=== PATIENT | male | born 1935 | race African-American/Black ===

== ENCOUNTER 2016-06-14 09:59 | Emergency (ER) | payer OTHER, BC ==
[~2016-06-14] VITALS: Ht 182.9 cm; Wt 90.7 kg
[~2016-06-14 09:59] MED LIST: AMLODIPINE; BABY ASPIRIN; DILTIAZEM; LIP20 PO; TELM20TA PO
[2016-06-14 10:23] VITALS: BP_SYST 152
--- NOTE | 2016-06-14 10:28 | NUR ---
Patient to ER bed 6 to gown for evaluation. Side rails up. Report given to ELIZABETH WATTERS.
--- NOTE | 2016-06-14 10:30 | NUR ---
Patient AAOx4, no acute distress noted. Patient states he had "tendon surgery on left shoulder on " and c/o 09/24 pain in left elbow to left wrist. Denies any back or neck pain. Left shoulder and arm with immobilizer and "cooler" system. Radial pulses present bilaterally. No obvious deformities or swelling noted. No other complaints/injuries per patient or noted.
--- NOTE | 2016-06-14 10:32 | NUR ---
ER at bedside examining patient.
[2016-06-14 11:20] LABS: ANION GAP 8 (5-15); CALCIUM 9.1 mg/dL (8.4-11.0); CHLORIDE 100 mmol/L (98-107); CREATININE 1.08 mg/dL (0.55-1.30); GLUCOSE 133 mg/dL (70-99); POTASSIUM 3.2 mmol/L (3.5-5.1); SODIUM SERUM 133 mmol/L (136-145); UREA NITROGEN, BLOOD 12 mg/dL (8-21)
[2016-06-14 11:22] LABS: BASOPHILS # (AUTO) 0.1 K/uL (0.0-0.2); BASOPHILS % (AUTO) 0.9 % (0.0-2.0); EOSINOPHILS # (AUTO) 0.1 K/uL (0.0-0.4); HEMATOCRIT 46.4 % (36-54); HEMOGLOBIN 15.6 g/dL (14.0-18.0); INR 1.1 (0.80-1.20); LYMPHOCYTES # (AUTO) 1.5 K/uL (1.0-5.5); LYMPHOCYTES % (AUTO) 12.3 % (20.5-51.5); MEAN CORPUSCULAR HEMOGLOBIN 30 pg (27-31); MEAN CORPUSCULAR HGB CONC 34 % (32-36); MEAN CORPUSCULAR VOLUME 89 fL (79.0-98.0); MONOCYTES # (AUTO) 1.2 K/uL (0.0-1.0); MONOCYTES % (AUTO) 9.8 % (1.7-9.3); NEUTROPHILS # (AUTO) 9.4 K/uL (1.8-7.7); PLATELET COUNT (AUTO) 224 K/uL (130-430); PROTHROMBIN TIME 11.8 SECS (9.5-12.5); RED BLOOD CELL COUNT(AUTO) 5.23 MIL/uL (4.2-6.2); RED CELL DISTRIBUTION WIDTH 13.6 % (9.0-15.0); WHITE BLOOD COUNT (AUTO) 12.3 K/uL (4.8-10.8)
[2016-06-14 11:25] LABS: ALANINE AMINOTRANSFERASE 30 U/L (12-78); ALBUMIN 3.8 g/dL (3.4-4.8); ASPARTATE AMINOTRANSFERASE 20 U/L (10-37); TOTAL BILIRUBIN 0.6 mg/dL (0.0-1.0); TOTAL PROTEIN, SERUM 8.1 g/dL (6.4-8.3)
[2016-06-14] MEDS ORDERED: KETOROLAC TROMETHAMINE 15 MG VIAL IVP ONE (11:30)
[2016-06-14] MEDS ORDERED: NS 500 ML IV ONE (11:30)
[2016-06-14] MEDS ORDERED: DEXAMETHASONE SOD PHOSPHATE 10 MG/ML VIAL IVP ONE (11:30)
--- NOTE | 2016-06-14 11:30 | NUR ---
PT MEDICATED FOR PAIN.PT TOLERATED WELL. CONTINUING TO MONITOR.
--- NOTE | 2016-06-14 12:00 | NUR ---
US AT BEDSIDE.
--- NOTE | 2016-06-14 12:30 | NUR ---
Jason devries in [facility] - 06/14/16 at 1354 by AARON PT AMBULATED TO RESTROOM W/ WALKER W/O ASSIST. PT TOLERATED WELL.
[2016-06-14 13:16] VITALS: BP_SYST 156
--- NOTE | 2016-06-14 13:21 | NUR ---
Patient given written and verbal discharge instructions and verbalizes understanding. ER MD discussed with patient the results and treatment provided. Patient in stable condition. ID arm band removed. IV catheter removed intact and dressing applied, no active bleeding. No Rx given. Patient educated on pain management and to follow up with PMD. Pain Scale 3/10. Opportunity for questions provided and answered.
== END 2016-06-14 13:21 | disposition home or self-care (01) ==
LOC: SED 09:59
DX: G89.18 Other acute postprocedural pain (principal); M79.632 Pain in left forearm; I10 Essential (primary) hypertension; E78.5 Hyperlipidemia, unspecified; Z85.46 Personal history of malignant neoplasm of prostate
CPT/HCPCS: 36415; 80053; 83605; 85025; 85379; 85610; 85730; 87040; 93005; 93971; 96361; 96374; 96375; 99285; J1100; J1885; J7040